=== PATIENT | female | born 1990 | race Caucasian/White ===

== ENCOUNTER 2021-10-09 16:38 | Emergency (ER) | payer MEDICAID, OTHER ==
[~2021-10-09] VITALS: Ht 167.6 cm; Wt 99.8 kg
[2021-10-09] MEDS ORDERED: DexAMETHasone SOD PHOS 10MG/1ML VIAL INJ IM ONE (17:45)
[2021-10-09] MEDS ORDERED: FAMOTIDINE 20 MG TAB PO ONE (17:45)
[2021-10-09] MEDS ORDERED: diphenhdrAMINE HCL 50 MG/1 ML VL IM ONE (17:45)
[2021-10-09] MEDS ORDERED: PRED10TA PO (17:57)
[2021-10-09 18:16] VITALS: BP 143/83
== END 2021-10-09 18:38 | disposition home or self-care (01) ==
LOC: ER 16:38
DX: J02.9 Acute pharyngitis, unspecified (principal); T50.B95A Adverse effect of other viral vaccines, initial encounter; Y92.89 Other specified places as the place of occurrence of the external cause; Z79.899 Other long term (current) drug therapy; Z88.1 Allergy status to other antibiotic agents
CPT/HCPCS: 93005; 96372; 99284; J1100; J1200

== ENCOUNTER 2023-08-03 20:53 | Emergency (ER) | payer MEDICAID ==
[~2023-08-03] VITALS: Ht 167.6 cm; Wt 106.7 kg
[~2023-08-03 20:53] MED LIST: PRED10TA PO
[2023-08-03 20:57] VITALS: BP 147/85; PULSE 90; RESP 16; TEMP 97.8; O2SAT 99
[2023-08-03] MEDS ORDERED: diphenhdrAMINE HCL 50 MG/1 ML VL IM ONE (23:30)
[2023-08-03] MEDS ORDERED: FAMOTIDINE 20 MG TAB PO ONE (23:30)
[2023-08-03] MEDS ORDERED: methylPREDNISolone SOD SUCC 125 MG/2 ML VL IM ONE (23:30)
[2023-08-03] MEDS ORDERED: PRED20TA2 PO (23:40)
[2023-08-03] MEDS ORDERED: FAMO20TA10 PO (23:40)
[2023-08-03] MEDS ORDERED: DIPH25CA66 PO (23:40)
[2023-08-03] MEDS ORDERED: IBUPROFEN 800 MG TAB PO ONE (23:45)
== END 2023-08-03 23:59 | disposition home or self-care (01) ==
LOC: ER 20:53
DX: T78.40XA Allergy, unspecified, initial encounter (principal); Z88.1 Allergy status to other antibiotic agents; X58.XXXA Exposure to other specified factors, initial encounter
CPT/HCPCS: 96372; 99284; J1200; J2930

== ENCOUNTER 2024-05-17 22:54 | Emergency (ER) | payer MEDICAID ==
[~2024-05-17] VITALS: Ht 167.6 cm; Wt 108.9 kg
[~2024-05-17 22:54] MED LIST changes: +DIPH25CA66 PO; +FAMO20TA10 PO; +PRED20TA2 PO
[2024-05-17 23:43] LABS: Basophils # (auto) 0.1 10 ^3/uL (0-0.2); Basophils % (auto) 0.3 % (0.0-2.0); Eosinophils # (auto) 0.1 10 ^3/uL (0-0.8); Eosinophils % (auto) 0.8 % (0.0-7.0); Hematocrit 41.8 % (36.0-46.0); Hemoglobin 14.6 g/dL (12.2-16.2); Lymphocytes # (auto) 2.4 10 ^3/uL (0.4-5.4); Lymphocytes % (auto) 14.2 % (10.0-50.0); Mean Corpuscular Hemoglobin 28.7 pg (28.0-32.0); Mean Corpuscular Hgb Conc. 34.9 g/dL (32.0-36.0); Mean Corpuscular Volume 82.3 fL (80.0-100.0); Monocytes # (auto) 0.9 10 ^3/uL (0-1.3); Monocytes % (auto) 5.3 % (0.0-12.0); Neutrophils # (auto) 13.6 10 ^3/uL (1.6-8.6); Neutrophils % (auto) 79.4 % (37.0-80.0); Platelet Count (auto) 323 10^3/uL (140-450); Red Blood Cells 5.08 10^6/uL (4.0-5.20); Red Cell Distribution Width 12.5 % (11.8-14.3); White Blood Cell 17.2 10^3/uL (4.4-10.8)
[2024-05-17 23:56] LABS: Alanine Aminotransferase 29 U/L (7-40); Albumin 4.6 g/dL (3.2-4.8); Alkaline Phosphatase 69 U/L (46-116); Anion Gap 6 (5-15); Aspartate Aminotransferase 16 U/L (13-40); BUN/Creatinine Ratio 12.8 (10.0-20.0); Blood Urea Nitrogen 11 mg/dL (9-23); Calcium 9.8 mg/dL (8.7-10.4); Carbon Dioxide 23 mmol/L (20-30); Chloride 107 mmol/L (98-107); Glucose 119 mg/dL (74-106); Lipase 41 U/L (12-53); Sodium 136 mmol/L (136-145)
[2024-05-17 23:57] LABS: Bilirubin, Total 0.3 mg/dL (0.2-1.0); Total Protein 7.1 g/dL (5.7-8.2)
[2024-05-18 00:11] LABS: Urine Bacteria None Seen /hpf (None Seen)
[2024-05-18 00:22] LABS: Urine Blood Negative /uL (Negative); Urine Clarity Clear (Clear); Urine Color Yellow (Yellow); Urine Mucus FEW (None Seen); Urine Protein, UAD TRACE (Negative); Urine Specific Gravity 1.036 (1.001-1.035); Urine Urobilinogen Normal (Negative); Urine WBC 2 /hpf (0 - 5); Urine pH 5.5 (5.0-9.0)
[2024-05-18 00:45] VITALS: PULSE 85; RESP 18; O2SAT 98
[2024-05-18] MEDS: AZTREONAM 1GM INJ 2 GM in D5W 5% 50 ML IV ONE (00:45)
[2024-05-18] MEDS: MORPHINE SULFATE 4 MG/ML SYR/VIAL IV ONE ×2 (00:45→01:43)
[2024-05-18] MEDS: ONDANSETRON HCL 4 MG/2 ML VIAL IV ONE ×2 (00:45→01:40)
[2024-05-18] MEDS: SODIUM CHLORIDE 0.9% 1,000 ML IV ONE (01:40)
[2024-05-18] MEDS: FAMOTIDINE (10MG/ML) 2ML VL IV ONE (01:40)
[2024-05-18 03:18] VITALS: BP 141/87; PULSE 73; RESP 18; TEMP 97.9; O2SAT 97
== END 2024-05-18 03:20 | disposition short-term general hospital (02) ==
LOC: ER 22:54
DX: K80.20 Calculus of gallbladder without cholecystitis without obstruction (principal); D72.829 Elevated white blood cell count, unspecified; K21.9 Gastro-esophageal reflux disease without esophagitis; K76.0 Fatty (change of) liver, not elsewhere classified; Z79.52 Long term (current) use of systemic steroids; Z88.0 Allergy status to penicillin; Z88.1 Allergy status to other antibiotic agents; Z90.710 Acquired absence of both cervix and uterus
CPT/HCPCS: 36415; 76705; 80053; 81001; 83690; 85025; 96361; 96374; 96375; 99285; J2270; J2405; J3490; J7030; J7060

== ENCOUNTER 2025-07-12 17:41 | Emergency (ER) | payer MEDICAID ==
[~2025-07-12] VITALS: Ht 167.6 cm; Wt 108.4 kg
[2025-07-12 18:49] LABS: Urine Protein, UAD Negative (Negative)
--- NOTE | 2025-07-12 19:37 | ED.PDOC ---
History of Present Illness HPI Comments This is a 34 year old female presenting to the ED with chief complaint of blurred vision and abdominal pain. Patient reports that she has been experiencing left eye vision blurriness since dropping a wrench on her left eye changing her oil last Saturday (3 days ago). Describes it as if the left lateral portion of her eye has astigmatism as it is blurry. Denies any black curtain over the visual field. Can still see along that left lateral portion of the eye. Denies actual visual loss. Reports some pain around the eye. Has not been evaluated by an packing room inspector. Was not having symptoms before this eye injury. Reporting intermittent sharp right mid abdominal pain over the past 4 days. Denies any fevers. No urinary symptoms. Patient states that she had went to [facility] today, but was advised to come to the ED for further evaluation. Patient denies any N/V/D, dizziness, headache, numbness, weakness. Chief Complaint: Eye Problem Time Seen by MD: 19:35 Reviewed Notes: Nurses Notes, Medications, Allergies Allergies: Coded Allergies: Amoxicillin (Verified Allergy, Severe, THROAT CLOSES , 10/09/21) Azithromycin (Verified Allergy, Intermediate, HIVES, 10/09/21) Cephalexin (Verified Allergy, Unknown, 05/17/24) Hydroxyzine (Verified Allergy, Unknown, 07/12/25) Metronidazole (Verified Allergy, Unknown, 05/17/24) Nitrofurantoin (Verified Allergy, Unknown, 05/17/24) Home Meds Active Scripts Prednisone (Prednisone) 20 Mg Tab, 1 TAB PO BID for 5 Days, #10 TAB Start tomorrow with food Prov:CARROLL,NORALDA Q CLEAN ROOM ASSEMBLER 08/03/23 Famotidine (PEPCID TABLET) 20 Mg Tb, 1 TAB PO BID for 10 Days, #20 TAB Prov:CARROLL,NORALDA Q CLEAN ROOM ASSEMBLER 08/03/23 Diphenhydramine Hcl (Benadryl Allergy) 25 Mg Cap, 1 CAP PO Q8HPRN PRN, #30 CAP As needed for allergy symptoms Prov:CARROLL,NORALDA Q CLEAN ROOM ASSEMBLER 08/03/23 Prednisone (Prednisone) 10 Mg Tab, 10 MG PO DAILY for 5 Days, #5 TAB 0 Refills Prov:CLEMENTINA LOOMIS APPLIANCE REPAIR TECHNICIAN 10/09/21 Information Source: Patient Mode of Arrival: Ambulatory Severity: Moderate Timing: Days Duration: Since onset Prehospital treatment: None Past Medical History PAST MEDICAL HISTORY: GERD Surgical History: Cholecystectomy, Hysterectomy CLOUD SECURITY ARCHITECT History: Denies all CLOUD SECURITY ARCHITECT Hx Family History Family History: Reviewed,noncontributory to illness, Unknown Social History Smoker: Non-Smoker Alcohol: Denies ETOH Use Drugs: Denies Drug Use Lives In: Home Constitutional: denies: chills, diaphoresis, fatigue, fever, malaise, sweats, weakness, others EENTM: reports: blurred vision; denies: double vision, ear bleeding, ear disc harge, ear drainage, ear pain, ear ringing, eye pain, eye redness, hearing loss, mouth pain, mouth swelling, nasal discharge, nose bleeding, nose congestion, nose pain, photophobia, tearing, throat pain, throat swelling, voice changes, others Respiratory: denies: cough, hemoptysis, orthopnea, SOB at rest, shortness of breath, SOB with excertion, stridor, wheezing, others Cardiovascular: denies: chest pain, dizzy spells, diaphoresis, Dyspnea on exertion, edema, irregular heart beat, left arm pain, lightheadedness, palpitations, PND, syncope, others Gastrointestinal: reports: abdominal pain; denies: abdomen distended, blood streaked bowels, constipated, diarrhea, dysphagia, difficulty swallowing, hematemesis, melena, nausea, poor appetite, poor fluid intake, rectal bleeding, rectal pain, vomiting, others Genitourinary: denies: abnormal vagina bleeding, burning, dyspareunia, dysuria, flank pain, frequency, hematuria, incontinence, pain, , vagina discharge, urgency, others Neurological: denies: dizziness, fainting, headache, left sided numbness, left sided weakness, numbness, paresthesia, pre-existing deficit, right sided numbn ess, right sided weakness, seizure, speech problems, tingling, tremors, weakness, others Musculoskeletal: denies: back pain, gout, joint pain, joint swelling, muscle pain, muscle stiffness, neck pain, others Integumetry: denies: bruises, change in color, change in hair/nails, dryness, laceration, lesions, lumps, rash, wounds, others Allergic/Immunocompromised: denies: Difficulty Healing, Frequent Infections, Hives, Itching, others Hematologic/Lymphatic: denies: anemia, blood clots, easy bleeding, easy bruising, swollen glands, others Endocrine: denies: excessive hunger, excessive sweating, excessive thirst, excessive urination, flushing, intolerance to cold, intolerance to heat, unexplained weight gain, unexplained weight loss, others Psychiatric: denies: anxiety, bipolar disorder, depression, hopeless, panic disorder, schizophrenia, sleepless, suicidal, others All Other Systems: Reviewed and Negative Physical Exam General Appearance: No Apparent Distress, Normal HEENT: Normal ENT Inspection, Pharynx Normal, TMs Normal, Other (Left Eye: No obvious corneal ulcerations, abrasions noted, no subconjunctival hemorrhage, normal extraocular movement, no swelling noted around the eye) Neck: Full Range of Motion, Non-Tender, Normal, Normal Inspection Respiratory: Chest Non-Tender, Lungs Clear, No Accessory Muscle Use, No Respiratory Distress, Normal Breath Sounds Cardiovascular: No Edema, No JVD, No Murmur, No Gallop, Normal Peripheral Pulses, Regular Rate/Rhythm Breast Exam: Deferred Gastrointestinal: No Organomegaly, No Pulsatile Mass, Normal Bowel Sounds, Soft, Other (mild right mid abdominal ttp) Genitalia: Deferred Pelvic: Deferred Rectal: Deferred Extremities: No calf tenderness, Normal capillary refill, Normal inspection, Normal range of motion, Non-tender, No pedal edema Musculoskeletal : Apperance: Normal Neurologic: Alert, transcription coordinator II-XII nml as Tested, No Motor Deficits, Normal Affect, Normal Mood, No Sensory Deficits Cerebellar Function: Normal Reflexes: Normal Skin: Dry, Normal Color, Warm Lymphatic: No Adenopathy Was a procedure done? Was a procedure done?: Yes Sedation Sedation?: No Other Procedure Procedure Ultrasound of patient's left eye Indication Left eye injury x Saturday w/ blurred vision Anesthetic None Prep Tegaderm placed over left eye and lubrication applied for US Success No obvious retinal detachment or hemorrhage noted. Informed consent obtained: Yes Risks, benefits, and alternati: Yes Differential Dx Considerations may include: Abdominal Pain: Peptic ulcer disease versus appendicitis versus small bowel obstruction Left Eye Blurred Vision: Retinal detachment versus vitreous hemorrhage versus corneal ulceration versus corneal abrasion versus retrobulbar hematoma X-Ray, Labs, Meds, VS Vital Signs Date Time Temp Pulse Resp B/P (MAP) Pulse Ox O2 Delivery O2 Flow Rate FiO2 07/12/25 20:45 97.0 77 16 157/90 (112) 99 97.0 07/12/25 17:43 98.1 83 18 164/99 99 98.1 Lab Test 07/12/25 19:49 07/12/25 18:37 Range/Units White Blood Count 9.4 4.4-10.8 10^3/uL Red Blood Count 5.13 4.0-5.20 10^6/uL Hemoglobin 14.5 12.2-16.2 g/dL Hematocrit 42.4 36.0-46.0 % Mean Corpuscular Volume 82.6 80.0-100.0 fL Mean Corpuscular Hemoglobin 28.3 28.0-32.0 pg Mean Corpuscular Hemoglobin Concent 34.3 32.0-36.0 g/dL Red Cell Distribution Width 12.7 11.8-14.3 % Platelet Count 352 140-450 10^3/uL Mean Platelet Volume 8.7 6.9-10.8 fL Neutrophils (%) (Auto) 59.3 37.0-80.0 % Lymphocytes (%) (Auto) 31.3 10.0-50.0 % Monocytes (%) (Auto) 7.0 0.0-12.0 % Eosinophils (%) (Auto) 1.8 0.0-7.0 % Basophils (%) (Auto) 0.6 0.0-2.0 % Neutrophils # (Auto) 5.6 1.6-8.6 10 ^3/uL Lymphocytes # (Auto) 2.9 0.4-5.4 10 ^3/uL Monocytes # (Auto) 0.7 0-1.3 10 ^3/uL Eosinophils # (Auto) 0.2 0-0.8 10 ^3/uL Basophils # (Auto) 0.1 0-0.2 10 ^3/uL Nucleated Red Blood Cells 0.1 % Sodium Level 141 136-145 mmol/L Potassium Level 3.5 3.5-5.1 mmol/L Chloride Level 107 98-107 mmol/L Carbon Dioxide Level 25 20-31 mmol/L Anion Gap 9 5-15 Blood Urea Nitrogen 14 9-23 mg/dL Creatinine 0.81 0.550-1.02 mg/dL Glomerular Filtration Rate Calc 96 >90 mL/min BUN/Creatinine Ratio 17.3 10.0-20.0 Serum Glucose 81 74-106 mg/dL Calcium Level 9.6 8.7-10.4 mg/dL Total Bilirubin 0.4 0.2-1.0 mg/dL Aspartate Amino Transferase (AST) 27 13-40 U/L Alanine Aminotransferase (ALT) 37 7-40 U/L Alkaline Phosphatase 66 46-116 U/L Total Protein 7.2 5.7-8.2 g/dL Albumin 4.4 3.2-4.8 g/dL Lipase 40 12-53 U/L Urine Color Yellow Yellow Urine Clarity Clear Clear Urine pH 5.0 5.0-9.0 Urine Specific [place] 1.029 1.001-1.035 Urine Protein Negative Negative Urine Ketones Trace Negative Urine Blood Negative Negative /uL Urine Nitrite Negative Negative Urine Bilirubin Negative Negative Urine Urobilinogen Normal Negative mg/dL Urine Leukocyte Esterase Negative Negative /uL Urine RBC None seen 0 - 4 /hpf Urine Microscopic WBC < 1 0-5 /HPF Urine Squamous Epithelial Cells Few <5 /hpf Urine Bacteria None seen None Seen /hpf Urine Mucus Few None Seen Urine Glucose Normal Normal mg/dL Urine Test Negative Negative Current Medications Medications (Trade) Dose Ordered Sig/Estrella Route Start Time Stop Time Status Last Admin Ketorolac Tromethamine (Toradol Injection) 15 mg ONCE ONCE IV 07/12/25 20:00 07/12/25 20:01 DC 07/12/25 20:41 Acetaminophen (Tylenol Tablet Or Capsule) 1,000 mg ONCE ONCE PO 07/12/25 20:00 07/12/25 20:01 DC 07/12/25 20:41 Famotidine (Pepcid Tablet) 20 mg ONCE ONCE PO 07/12/25 20:00 07/12/25 20:01 DC 07/12/25 20:41 [place] [id number] Ph: [phone] DIAGNOSTIC IMAGING Diagnostic Imaging Report : [id number] Signed PATIENT: LEONARDA MARKHAMT: [id number] UNIT: [id number] : 1990 LOC: ER ROOM / BED: / AGE / SEX: 34 / F ADM STATUS: REG ER SERVICE 41 ORDERING PHYSICIAN: CONNOR MACE MD PROCEDURE(s): ABPLIV - CT AB PEL WITH IV CON ONLY REASON: right mid abd pain, eval for appy ORDER NUMBER(s): [id number], ACCESSION NUMBER(s): [id number] Exam: CT abdomen and pelvis with contrast dated [Order Date] CT CT AB PEL WITH IV CON ONLY History: right mid abd pain, eval for appy Comparison Study: None Exam Date: 07/12/2025 08:58 PM Radiation Dose Information: CT Dose: CTDI volume is 26.6 mGy. Dose-length product is 1465 mGy*cm Contrast: TECHNIQUE: During the uneventful, intravenous administration of contrast material, multislice data acquisition was obtained through the abdomen and pelvis. The data set was subsequently reconstructed into axial images. Images were reviewed on a work station using a combination of axial and multiplanar using a variety of window levels and settings. Findings: Lower chest: Clear. Liver: Mildly decreased in attenuation diffusely Biliary system: Surgically absent gallbladder Spleen: Unremarkable Pancreas: Unremarkable. Adrenals: Unremarkable. Kidneys and ureters: Normal renal enhancement. No hydronephrosis Bowel: No obstruction. Normal appendix. Bladder: Unremarkable Reproductive organs: No abnormal mass. Lymph nodes: Unremarkable. Peritoneum: Unremarkable Vessels: Patent major intra-abdominal vasculature. Bones and soft tissue: Sclerotic lesion in the T8 vertebral body. IMPRESSION: No acute abnormality in the abdomen or pelvis. Normal appendix. Sclerotic lesion in the T8 vertebral body. This is nonspecific and may represent a bone island. Consider follow-up CT in 6- 12 months to ensure stability. ATED BY: IRA HAGER MD DICTATED DATE/TIME: 07/12/252125 SIGNED BY: IRA HAGER MD SIGNED DATE/TIME: 07/12/252125 CC: Images Reviewed?: Images reviewed and evaluated by me Time of 1ST Reevaluation: 20:32 Reevaluation 1ST: Unchanged Time of 2ND Reevaluation: 21:44 Reevaluation 2ND: Improved Patient Education/Counseling: Diagnosis, Treatment, Need For Follow Up Family Education/Counseling: No Family Present SEPSIS Sepsis Screen Date sepsis recognized/suspect: Jul 12, 2025 Time Sepsis recognized/suspect: 1743 Recent Procedure: No On Antibiotic Therapy: No Respiratory Rate >20: No Heart Rate >90: No Temp<36 C (96.8 F) or >38.3 C: No SBP <90 or MAP <65 mmHG: No New Acute Mental Status Change: No Is the patient on CPAP, BIPAP,: No Physician Orders Orbits Wo Contrast (07/12/25 19:40) Ct Ab Pel With Iv Con Only (07/12/25 19:42) Vital Signs Date Time Temp Pulse Resp B/P (MAP) Pulse Ox O2 Delivery O2 Flow Rate FiO2 07/12/25 20:45 97.0 77 16 157/90 (112) 99 97.0 07/12/25 17:43 98.1 83 18 164/99 99 98.1 Laboratory Tests Test 07/12/25 19:49 White Blood Count 9.4 10^3/uL (4.4-10.8) Medications Medications Dose Ordered Sig/Estrella Route Start Time Stop Time Status Last Admin Dose Admin Acetaminophen 1,000 mg ONCE ONCE PO 07/12/25 20:00 07/12/25 20:01 DC 07/12/25 20:41 Famotidine 20 mg ONCE ONCE PO 07/12/25 20:00 07/12/25 20:01 DC 07/12/25 20:41 Ketorolac Tromethamine 15 mg ONCE ONCE IV 07/12/25 20:00 07/12/25 20:01 DC 07/12/25 20:41 Departure 1 Departure Time of Disposition: 21:37 (This is a 47 year old female with past medical hist ory of alcohol abuse BIBA presenting to the ED with chief complaint of epigastric discomfort and chest wall pain. Patient reporting right mid abdominal pain past 4 days. Has already had prior cholecystectomy. Some right- sided mid abdominal pain consider possible renal colic. Given the location of the right-sided mid abdominal pain consider possible sinus. Patient also has had prior abdominal surgery, consider possible SBO. CT of the abdomen and pelvis was performed which shows no evidence of any acute intra-abdominal process. Shows a sclerotic lesion within the T8 vertebral body which could be bone island. Informed of this finding, provided a copy of her CT report, advised to report this to her primary care doctor so that they can monitor it. CBC shows no evidence of critical leukocytosis or significant anemia. Comprehensive metabolic panel normal liver function tests, normal lipase. Does not seem consistent with acute pancreatitis. Urinalysis with no signs to suggest UTI or pyelonephritis. Consider possible muscular spasm given recurrent pain. Was given IV Toradol, oral Tylenol and Pepcid for analgesia. As for the patient's left-sided blurred vision this is in the setting of trauma. Patient has normal ocular examination, no signs concerning for corneal abrasion, laceration. Bedside ultrasound performed which shows no evidence concerning for retinal detachment, vitreous hemorrhage. Given symptoms caused by trauma CT orbits was performed which shows no evidence of retrobulbar hematoma, no orbital floor fractures, no obvious evidence of any abnormalities seen near the left eye. Not have true visual loss. Reporting more so blurred vision. She is recommended to follow up with outpatient packing room inspector, investigative analyst for further evaluation of her left eye blurred vision.) Impression: Primary Impression: Right sided abdominal pain Additional Impressions: Left eye pain Blurry vision, left eye Disposition: 01 HOME / SELF CARE / HOMELESS Condition: Stable Additional Instructions: You were evaluated today for right-sided abdominal pain and left eye blurred vision. Your labs, urinalysis, CT abdomen and pelvis showed no evidence of any acute intra-abdominal process. You were also evaluated for left eye blurred vision. Your physical exam does not show any findings of corneal abrasions, retinal detachment, vitreous hemorrhage. CT of the orbits was also performed which shows no evidence of any facial fractures, retrobulbar hematoma or other abnormalities of your orbits identified on CT. You were having continued left-sided blurred vision you should follow up packing room inspector, investigative analyst (eye doctor) for further evalu ation of the cause of your symptoms today. Discharged With: Self Critical Care Note Critical Care Time?: No Stability Stability form required: No Heart Score Heart Score: Heart Score Response (Comments) Value History N/A 0 EKG N/A 0 Age N/A 0 Risk Factors N/A 0 Troponin N/A 0 Total 0 I personally scribed for CONNOR MACE MD ([email or web address] on 07/12/25 at 19:37. Electronically submitted by Fly Rivera ([email or web address]). I personally scribed for CONNOR MACE MD ([email or web address]) on 07/12/25 at 20:21. Electronically submitted by Fly Rivera ([email or web address]). I personally scribed for CONNOR MACE MD ([email or web address]) on 07/12/25 at 21:30. Electronically submitted by Fly Rivera ([email or web address]). CONNOR MACE MD Jul 12, 2025 19:37
[2025-07-12 20:05] LABS: Hematocrit 42.4 % (36.0-46.0); Hemoglobin 14.5 g/dL (12.2-16.2); Mean Corpuscular Hemoglobin 28.3 pg (28.0-32.0); Mean Corpuscular Volume 82.6 fL (80.0-100.0); Nucleated Red Blood Cells % 0.1 %
[2025-07-12 20:19] LABS: Alanine Aminotransferase 37 U/L (7-40); Albumin 4.4 g/dL (3.2-4.8); Alkaline Phosphatase 66 U/L (46-116); Anion Gap 9 (5-15); BUN/Creatinine Ratio 17.3 (10.0-20.0); Bilirubin, Total 0.4 mg/dL (0.2-1.0); Blood Urea Nitrogen 14 mg/dL (9-23); Calcium 9.6 mg/dL (8.7-10.4); Carbon Dioxide 25 mmol/L (20-31); Potassium 3.5 mmol/L (3.5-5.1); Sodium 141 mmol/L (136-145); Total Protein 7.2 g/dL (5.7-8.2)
[2025-07-12 20:20] LABS: Chloride 107 mmol/L (98-107); Glucose 81 mg/dL (74-106)
[2025-07-12 20:34] LABS: Lipase 40 U/L (12-53)
--- NOTE | 2025-07-12 20:34 | DVH ---
Exam: CT ORBITS WO CONTRAST HISTORY: left eye trauma, visual deficit, eval for retrobulbar hemato COMPARISON: None TECHNIQUE: Nonenhanced axial images through the orbits with coronal and sagittal MPR. Radiation Dose Information: CT Dose: CTDI volume is 66.97 mGy. Dose-length product is 977.89 mGy*cm Findings: No acute facial bone fractures or subluxations are seen. The globes are intact. Extraocular muscles are symmetric. No retrobulbar hematoma. Essentially clear visualized paranasal sinuses. IMPRESSION: No acute orbital bone fractures or subluxations are seen. The globes are intact. Extraocular muscles are symmetric. No retrobulbar hematoma.
[2025-07-12] MEDS: FAMOTIDINE 20 MG TAB PO ONE (20:41)
[2025-07-12] MEDS: KETOROLAC TROMETH 30 MG/ML 1ML VIAL IV ONE (20:41)
[2025-07-12] MEDS: ACETAMINOPHEN 500 MG TAB or CAP PO ONE (20:41)
[2025-07-12 20:45] VITALS: BP 157/90; PULSE 77; RESP 16; TEMP 97; O2SAT 99
[2025-07-12] MEDS ORDERED: IOHEXOL 300 MG/ML 100ML BOTTLE IJ ONE (20:57)
--- NOTE | 2025-07-12 21:28 | DVH ---
Exam: CT abdomen and pelvis with contrast dated [Order Date] CT CT AB PEL WITH IV CON ONLY History: right mid abd pain, eval for appy Comparison Study: None Exam Date: 07/12/2025 08:58 PM Radiation Dose Information: CT Dose: CTDI volume is 26.6 mGy. Dose-length product is 1465 mGy*cm Contrast: TECHNIQUE: During the uneventful, intravenous administration of contrast material, multislice data acquisition was obtained through the abdomen and pelvis. The data set was subsequently reconstructed into axial images. Images were reviewed on a work station using a combination of axial and multiplanar using a variety of window levels and settings. Findings: Lower chest: Clear. Liver: Mildly decreased in attenuation diffusely Biliary system: Surgically absent gallbladder Spleen: Unremarkable Pancreas: Unremarkable. Adrenals: Unremarkable. Kidneys and ureters: Normal renal enhancement. No hydronephrosis Bowel: No obstruction. Normal appendix. Bladder: Unremarkable Reproductive organs: No abnormal mass. Lymph nodes: Unremarkable. Peritoneum: Unremarkable Vessels: Patent major intra-abdominal vasculature. Bones and soft tissue: Sclerotic lesion in the T8 vertebral body. IMPRESSION: No acute abnormality in the abdomen or pelvis. Normal appendix. Sclerotic lesion in the T8 vertebral body. This is nonspecific and may represent a bone island. Consider follow-up CT in 6- 12 months to ensure stability.
== END 2025-07-12 21:53 | disposition home or self-care (01) ==
LOC: ER 17:41
DX: R10.31 Right lower quadrant pain (principal); H57.12 Ocular pain, left eye; H53.8 Other visual disturbances; Z90.710 Acquired absence of both cervix and uterus; Z90.49 Acquired absence of other specified parts of digestive tract; Z88.1 Allergy status to other antibiotic agents; Z88.0 Allergy status to penicillin
CPT/HCPCS: 36415; 70480; 74177; 80053; 81001; 81025; 83690; 85025; 96374; 99285; J1885; Q9967